=== PATIENT | female | born 1975 | race Hispanic/Latino ===

== ENCOUNTER 2019-03-04 15:51 | Outpatient (CLI) | payer BC ==
--- NOTE | 2019-03-04 17:15 | MRI ---
Brain MRI with and without contrast: 03/04/2019 COMPARISON: None HISTORY: Asymmetric left-sided sensorineural hearing loss TECHNIQUE: Multiplanar multisequence MR imaging of the brain obtained with and without contrast using internal auditory canal protocol FINDINGS: The diffusion weighted imaging demonstrates no evidence for acute infarction. Imaged paranasal sinuses and mastoid air cells well-aerated. Arterial flow voids at the axial level of the skull base appear unremarkable on the T2-weighted imagi ng. There is no midline shift, mass effect, or ventricular enlargement. Thin section T2 imaging demonstrates no evidence for a mass at the cerebellopontine angle on either s brenda. The internal auditory canal, cochlea, vestibule, and semicircular canals demonstrate normal T2 signal intensity. Regional bone marrow signal intensity appears within normal limits. Postcontrast imaging demonstrates no abnormal enhancement at the level of the cerebellopontine angle, internal auditory canal, cochlea, vestibule, or semicircular canals on either side. Whole brain postcontrast imaging appears unremarkable. IMPRESSION: Unremarkable contrast enhanced brain MRI using internal auditory canal protocol.
== END 2019-03-04 15:52 | disposition home or self-care (01) ==
LOC: MRI 15:51
PROVIDERS: ATTEND Otolaryngology Plastic Surgery within the Head & Neck
DX: H90.5 Unspecified sensorineural hearing loss (principal)
CPT/HCPCS: 70553

== ENCOUNTER 2019-04-22 05:45 | Day surgery (SDC) | payer BC ==
[2019-04-21 16:06] VITALS: BMI 27.8
[2019-04-22] MEDS ORDERED: Ferric Subsulfate (ASTRINGYN) 8 ML VIAL ONE (06:22)
[2019-04-22] MEDS ORDERED: Fentanyl 100 MCG/2 ML VIAL ONE (06:47)
[2019-04-22] MEDS ORDERED: Midazolam HCl 2 mg/2 ml Vial ONE (06:47)
[2019-04-22] MEDS ORDERED: Dexamethasone 20 MG/5 ML VIAL ONE (07:10)
[2019-04-22] MEDS ORDERED: methylPREDNISolone Acetate 40 mg/ml Vial ONE (07:11)
[2019-04-22] MEDS ORDERED: Hydrocodone-Acetamin 15 ML UDCUP ONE (08:24)
[2019-04-22] MEDS ORDERED: Morphine 2 MG/ML SYRINGE ONE (08:25)
--- NOTE | 2019-04-22 11:57 | OP ---
DATE OF PROCEDURE: 04/22/2019 PREOPERATIVE DIAGNOSES: 1. Chronic adenotonsillitis. 2. Adenotonsillar hypertrophy. POSTOPERATIVE DIAGNOSES: 1. Chronic adenotonsillitis. 2. Adenotonsillar hypertrophy. PROCEDURE PERFORMED: Tonsillectomy and adenoidectomy. ESTIMATED BLOOD LOSS: Zero mL. COMPLICATIONS: None. ANESTHESIA: GETA. PROCEDURE IN DETAIL: After consent was obtained, the patient was identified, brought to the operating room, and placed on the operating table in the supine position. General endotracheal anesthesia and intravenous access were obtained and we proceeded with positioning the patient for oropharyngeal surgery. Oropharyngeal exposure was obtained with a Bee-Toni mouth gag after a head drape was placed and secured with a towel clip. The Bee-Toni mouth gag was then suspended from the Mcrae tray and palatal elevation was achieved with a red rubber catheter. The right tonsil was addressed first. We used a curved Allis to grasp the tonsil and retract it medially as an anterior pillar incision was made. The retrotonsillar fascial plane was then established and blunt dissection was performed with the suction cautery. Blood vessels were anticipated, identified, and cauterized as they were encountered. Ultimately, dissection was carried to the posterior tonsillar pillar mucosa which was incised hemostatically, as well as the base of tongue connection. The tonsil was then passed off as a specimen and bleeding points within the tonsillar bed were cauterized under direct visualization. We subsequently turned our attention to the contralateral side, where using a similar technique, a near identical procedure was performed. Again, the tonsil was grasped and retracted medially with a curved Allis. The retrotonsillar fascial plane was established and while the anterior pillar was retracted medially. The hemostatic blunt dissection of the tonsil with a suction cautery was performed with blood vessels anticipated, identified, and cauterized as they were encountered. Again, dissection continued to the base of tongue and posterior tonsillar pillar mucosa which was incised in a hemostatic fashion. The tonsillar beds were then carefully inspected and bleeding points were identified and cauterized with a suction cautery. After this portion of the procedure, hemostasis was completely obtained. Under direct mirror visualization, we visualized the adenoid pad. Under direct mirror visualization, we removed the bulk of the adenoid tissue with the adenoid curette. We then packed the nasopharynx for an appropriate period of time with Bnx-[id number]-rhxdckiqh tonsillar sponges. After a period of observation, we removed the pack. Under indirect mirror visualization, we obtained hemostasis and vaporization of residual adenoid tissue with electrocautery. The patient's oral cavity was copiously irrigated with iced saline and subsequently suctioned. After completion of the procedure, the nasal cavity and oropharynx were irrigated and suctioned as were the gastric contents. The patient was then awakened and transferred to the recovery room where the patient remained in stable condition prior to discharge to Day Stay. Job ID: [id number]
== END 2019-04-22 09:40 | disposition home or self-care (01) ==
LOC: SDC 05:45
PROVIDERS: ATTEND Otolaryngology Plastic Surgery within the Head & Neck
PROC: 0CTPXZZ Resection of Tonsils, External Approach (ICD-10-PCS; principal; 2019-04-22)
PROC: 0CTQXZZ Resection of Adenoids, External Approach (ICD-10-PCS; principal; 2019-04-22)
DX: J35.03 Chronic tonsillitis and adenoiditis (principal); H90.5 Unspecified sensorineural hearing loss; H93.13 Tinnitus, bilateral; Z79.899 Other long term (current) drug therapy
CPT/HCPCS: 36415; 85014; 88304; J1030; J1100; J2250; J2270; J3010

== ENCOUNTER 2020-11-23 13:33 | Outpatient (CLI) | payer BC ==
--- NOTE | 2020-11-23 14:04 | MMO ---
Bilateral MAMMO Bilat Screen [facility]. CLINICAL HISTORY: Patient is 45 years old and is seen for screening. The patient has no family history of breast cancer. The patient has no personal history of cancer. VIEWS: The views performed were: bilateral craniocaudal with tomosynthesis and bilateral mediolateral oblique with tomosynthesis. This study has been interpreted with the assistance of computer-aided detection. MAMMOGRAM FINDINGS: The breasts are heterogeneously dense, which could obscure a lesion on mammography. There are no suspicious masses, suspicious calcifications, or new areas of architectural distortion. IMPRESSION: THERE IS NO MAMMOGRAPHIC EVIDENCE OF MALIGNANCY. A ROUTINE FOLLOW-UP MAMMOGRAM IN 1 YEAR IS RECOMMENDED. THE RESULTS OF THIS EXAM WERE SENT TO THE PATIENT. ACR BI-RADS Category 1 - Negative MAMMOGRAPHY NOTE: 1. A negative mammogram report should not delay a biopsy if a dominant of clinically suspicious mass is present. 2. Approximately 10% to 15% of breast cancers are not detected by mammography. 3. Adenosis and dense breasts may obscure an underlying neoplasm. Reported by: JACOB NOVA MD Electonically Signed: [id number]
== END 2020-11-23 13:34 | disposition home or self-care (01) ==
LOC: BICMAMMO 13:33
PROVIDERS: ATTEND Family Medicine
DX: Z12.31 Encounter for screening mammogram for malignant neoplasm of breast (principal)
CPT/HCPCS: 77063; 77067

== ENCOUNTER 2025-08-13 12:41 | Outpatient (CLI) | payer BC | END 2025-08-13 12:42 | disposition home or self-care (01) | LOC: BICMRI 12:41 | PROVIDERS: ATTEND Family Medicine | DX: M25.532 Pain in left wrist (principal); M65.942 Unspecified synovitis and tenosynovitis, left hand; S63.592A Other specified sprain of left wrist, initial encounter ==

== ENCOUNTER 2025-10-19 10:02 | Outpatient (CLI) | payer BC | END 2025-10-19 10:03 | disposition home or self-care (01) | LOC: BICMAMMO 10:02 | PROVIDERS: ATTEND Family Medicine | DX: Z12.31 Encounter for screening mammogram for malignant neoplasm of breast (principal); R92.333 Mammographic heterogeneous density, bilateral breasts | CPT/HCPCS: 77063; 77067 ==